=== PATIENT | female | born 1990 | race African-American/Black ===

== ENCOUNTER 2016-12-08 07:38 | Emergency (ER) | payer OTHER ==
[~2016-12-08] VITALS: Ht 152.4 cm; Wt 65.8 kg
[~2016-12-08 07:38] MED LIST: IBUP-1060 PO; NAPR500T8 PO
[2016-12-08 07:56] VITALS: BP 113/71
[2016-12-08 08:04] LABS: BILIRUBIN,URINE NEGATIVE (NEG); GLUCOSE,URINE NEGATIVE (NEG); NITRITE,URINE NEGATIVE (NEG); PROTEIN,URINE NEGATIVE (NEG-TRACE)
--- NOTE | 2016-12-08 08:19 | PHYS DOC ---
Past Medical History Past Medical History: No Pertinent History Past Surgical History: No Surgical History Alcohol Use: None Drug Use: None Adult General Chief Complaint Chief Complaint: VAGINAL BLEEDING HPI HPI 26-year-old female presenting to the emergency department with vaginal bleeding. She reports possibly being . She had a positive test at home. Last menstrual period in July but she does not know the day. She denies any pain. The bleeding is been present for 2-3 days. Location tract. Duration intermittent. No alleviating or exacerbating factors. Review of systems is negative for chest pain shortness of breath abdominal pain nausea vomiting fevers or chills. All other review of systems is negative unless otherwise noted in history of present illness. ED course: 18-year-old female presenting to the emergency department today with vaginal bleeding and . Vital signs unremarkable. [id number] ultrasound obtained shows intrauterine with heart tones in the 140s. No free fluid. Abdomen is soft and nontender. Rh+ per chart review. Based on patient's last menstrual, She is over 20 weeks and will subsequently be transferred up to the obstetrics floor for further evaluation workup and care. Review of Systems Review of Systems SEE ABOVE. Allergies Allergies Allergies Coded Allergies Type Severity Reaction Last Updated Verified No Known Drug Allergies 08/03/14 No Physical Exam Physical Exam SEE ABOVE Constitutional: Well developed, well nourished, no acute distress, non-toxic appearance. [] HENT: Normocephalic, atraumatic, bilateral external ears normal, oropharynx moist, no oral exudates, nose normal. [] Eyes: PERRLA, EOMI, conjunctiva normal, no discharge. [] Neck: Normal range of motion, no tenderness, supple, no stridor. [] Cardiovascular:Heart rate regular rhythm, no murmur [] Lungs & Thorax: Bilateral breath sounds clear to auscultation [] Abdomen: Bowel sounds normal, soft, no tenderness, no masses, no pulsatile masses. [] Skin: Warm, dry, no erythema, no rash. [] Back: No tenderness, no CVA tenderness. [] Extremities: No tenderness, no cyanosis, no clubbing, ROM intact, no edema. [] Neurologic: Alert and oriented X 3, normal motor function, normal sensory function, no focal deficits noted. [] Psychologic: Affect normal, judgement normal, mood normal. [] Current Patient Data Vital Signs Vital Signs Date Time Temp Pulse Resp B/P (MAP) Pulse Ox O2 Delivery O2 Flow Rate FiO2 12/08/16 07:56 98.6 65 20 113/71 (85) 99 Room Air 98.6 Lab Values Laboratory Tests Test 12/08/16 06:55 12/08/16 07:45 POC Urine HCG, Qualitative Hcg positive (Negative) Urine Collection Type Unknown Urine Color Yellow Urine Clarity Clear Urine pH 7.0 Urine Specific Guthrie 1.020 Urine Protein Negative mg/dL (NEG-TRACE) Urine Glucose (UA) Negative mg/dL (NEG) Urine Ketones (Stick) Negative mg/dL (NEG) Urine Blood Large (NEG) Urine Nitrite Negative (NEG) Urine Bilirubin Negative (NEG) Urine Urobilinogen Dipstick 1.0 mg/dL (0.2 mg/dL) Urine Leukocyte Esterase Moderate (NEG) Urine RBC 3-5 /HPF (0-2) Urine WBC 5-10 /HPF (0-4) Urine Squamous Epithelial Cells Many /LPF Urine Bacteria 0 /HPF (0-FEW) Urine Mucus Mod /LPF EKG EKG [] Radiology/Procedures Radiology/Procedures [] Course & Med Decision Making Course & Med Decision Making Pertinent Labs and Imaging studies reviewed. (See chart for details) [] Dragon Disclaimer Dragon Disclaimer This electronic medical record was generated, in whole or in part, using a voice recognition dictation system. Departure Departure Impression: Primary Impression: Additional Impression: Vaginal bleeding in Disposition: 05 TRANSFER OTHER (OB floor) Condition: STABLE Referrals: NO PCP (PCP) Problem Qualifiers BRANDIE MONTERROSO MD Dec 08, 2016 08:18
[2016-12-08 08:34] LABS: BACTERIA,URINE 0 /HPF (0-FEW); SQUAMOUS EPITHELIAL CELL,UR MANY /LPF
== END 2016-12-08 08:42 | disposition home or self-care (01) ==
LOC: ER 07:38
DX: O46.92 Antepartum hemorrhage, unspecified, second trimester (principal); Z3A.20 20 weeks gestation of pregnancy
CPT/HCPCS: 81001; 81025; 87086; 99285

== ENCOUNTER 2016-12-08 08:28 | Inpatient (IN) | payer OTHER ==
[2016-12-08 07:56] VITALS: BP 113/71
[2016-12-08 10:33] LABS: BASO % 0 % (0-3); EOS % 1 % (0-3); HEMATOCRIT 35.6 % (36.0-47.0); HEMOGLOBIN 12.6 g/dL (12.0-15.5); LYMPH # 1.8 x10^3/uL (1.0-4.8); LYMPH % 22 % (24-48); MEAN CORPUSCULAR HEMOGLOBIN 31 pg (25-35); MEAN CORPUSCULAR HGB CONC 36 g/dL (31-37); MEAN CORPUSCULAR VOLUME 87 fL (79-100); MONO % 6 % (0-9); NEUT % 71 % (31-73); PLATELET COUNT 300 x10^3/uL (140-400); RED CELL DISTRIBUTION WIDTH 13.9 % (11.5-14.5); WHITE BLOOD COUNT 8.1 x10^3/uL (4.0-11.0)
[2016-12-08] MEDS ORDERED: IV RINGERS,LACTATED 1000ML 1,000 ML IV SCH (11:23)
--- NOTE | 2016-12-08 14:09 | RAD ---
Obstetrical ultrasound-limited, 12/08/2016: History: Vaginal bleeding and spotting, unsure of dates Transabdominal scans were obtained. There is a single intrauterine fetus in a cephalic orientation. The biparietal diameter measures 3 cm compatible with a gestational age of 15-16 weeks. This corresponds well with the other measurements and yields a sonographic EDC of 05/30/2017. Normal activity and heart motion were seen. The heart rate was 158 bpm. A full survey was not attempted at this time. A normal amount of amniotic fluid is present. The placenta is centered in the fundal region. There is no evidence of a placenta previa. The cervical length was estimated at 2.1-2.5 cm. IMPRESSION: 1. Single viable intrauterine fetus of 15-16 weeks gestational age. 2. Short cervix
--- NOTE | 2016-12-14 17:59 | PDOC1 ---
OB - History Hx of Present Care: None Ultrasounds: No ultrasounds Obstetrical Complications: Other (vaginal bleeding) Medical Complications: None Past Family/Social History * Past Medical, Surgical, Family and Obstetric Histories reviewed from chart. Blood Type: Unknown Rubella: Unknown RPR/VDRL: Unknown GBS Status: Unknown HBsAG: Unknown OB - Chief Complaint & HPI Date of Admission: Date of Admission: Dec 08, 2016 at 08:28 Chief Complaint/History : 5 Para: 3 EGA: 19 Reason for admission: vaginal bleeding Admission Nurse Assessment Rev: Yes Problems: OB - Admission Exam Physical Exam HEENT: Normal Heart: Regular Rate Lungs: Clear Abdomen: Gravid, Non tender, Soft Extremities: Normal Pulses, No tenderness or swelling Reflexes: Normal Cervical Dilatation: None Effacement: 0% Station: Ballotable Membranes: Intact Heart Rate: Normal Accelerations: Accelerations Present Decelerations: No decelerations Contractions on Admission: None Text A: 19 wks IUP with vaginal bleeding No active bleeding at this time P: Sono and heart tones. D/c home when stable. ERIK JEAN Jr, MD Dec 14, 2016 17:59
== END 2016-12-08 11:00 | disposition home or self-care (01) | DRG 778 ==
LOC: OBSVTOIN 08:28 → 3 SO LND 08:28
PROVIDERS: ADMIT Obstetrics & Gynecology; ATTEND Obstetrics & Gynecology
DX: O20.9 Hemorrhage in early pregnancy, unspecified (principal); Z3A.19 19 weeks gestation of pregnancy
CPT/HCPCS: 36415; 76805; 85027; 86850; 86900; 86901; G0378; G0379

== ENCOUNTER 2017-08-04 13:13 | Observation (INO) | payer OTHER ==
[2017-08-04 13:56] LABS: NEG OBC AMNIO NEG; POS OBC AMNIO POS
[2017-08-04 13:57] LABS: AMNIO PT POSITIVE
== END 2017-08-04 14:31 | disposition home or self-care (01) ==
LOC: 3 SO LND 13:13
DX: O42.912 Preterm premature rupture of membranes, unspecified as to length of time between rupture and onset of labor, second trimester (principal); Z3A.18 18 weeks gestation of pregnancy
CPT/HCPCS: 36415; 76815; 84112; G0378; G0379

== ENCOUNTER 2017-08-04 13:13 | Observation (INO) | payer OTHER ==
[2017-08-04 16:53] LABS: ADD MAN DIFF? NO
[2017-08-04 16:54] LABS: BASO # 0.1 x10^3/uL (0.0-0.2); BASO % 1 % (0-3); EOS # 0.1 x10^3/uL (0.0-0.7); EOS % 1 % (0-3); HEMATOCRIT 33.5 % (36.0-47.0); HEMOGLOBIN 11.7 g/dL (12.0-15.5); LYMPH # 1.7 x10^3/uL (1.0-4.8); LYMPH % 21 % (24-48); MEAN CORPUSCULAR HEMOGLOBIN 30 pg (25-35); MEAN CORPUSCULAR HGB CONC 35 g/dL (31-37); MEAN CORPUSCULAR VOLUME 87 fL (79-100); MONO # 0.5 x10^3/uL (0.0-1.1); MONO % 6 % (0-9); NEUT # 5.6 x10^3uL (1.8-7.7); NEUT % 71 % (31-73); PLATELET COUNT 297 x10^3/uL (140-400); RED BLOOD COUNT 3.87 x10^6/uL (3.50-5.40); RED CELL DISTRIBUTION WIDTH 14.1 % (11.5-14.5)
== END 2017-08-04 18:28 | disposition home or self-care (01) ==
LOC: 3 SO LND 13:13
DX: O42.912 Preterm premature rupture of membranes, unspecified as to length of time between rupture and onset of labor, second trimester (principal); Z3A.18 18 weeks gestation of pregnancy
CPT/HCPCS: 36415; 85025; G0378; G0379

== ENCOUNTER 2017-08-09 20:48 | Inpatient (IN) | payer OTHER ==
[2017-08-09] MEDS: IV NORMAL SALINE 1000ML BAG 1,000 ML IV (21:11)
[2017-08-09 21:17] LABS: ADD MAN DIFF? NO
[2017-08-09] MEDS: ONDANSETRON PF 4 MG/2 ML VIAL. IV (21:17)
[2017-08-09 21:20] LABS: BASO # 0.1 x10^3/uL (0.0-0.2); BASO % 1 % (0-3); EOS % 0 % (0-3); HEMATOCRIT 37.9 % (36.0-47.0); HEMOGLOBIN 12.9 g/dL (12.0-15.5); LYMPH # 2.4 x10^3/uL (1.0-4.8); LYMPH % 16 % (24-48); MEAN CORPUSCULAR HEMOGLOBIN 29 pg (25-35); MEAN CORPUSCULAR HGB CONC 34 g/dL (31-37); MEAN CORPUSCULAR VOLUME 86 fL (79-100); MONO # 1.3 x10^3/uL (0.0-1.1); MONO % 9 % (0-9); NEUT # 11.1 x10^3uL (1.8-7.7); NEUT % 74 % (31-73); PLATELET COUNT 329 x10^3/uL (140-400); RED CELL DISTRIBUTION WIDTH 13.8 % (11.5-14.5)
[2017-08-09 21:26] LABS: BILIRUBIN,URINE NEGATIVE (NEG); CLARITY,URINE CLOUDY; COLOR,URINE YELLOW; GLUCOSE,URINE NEGATIVE (NEG); NITRITE,URINE NEGATIVE (NEG); PH,URINE 6.5; PROTEIN,URINE NEGATIVE (NEG-TRACE); UROBILINOGEN,URINE 0.2 mg/dL (0.2 mg/dL)
[2017-08-09 21:32] LABS: BLOOD UREA NITROGEN 7 mg/dL (7-20); CALCIUM 9.3 mg/dL (8.5-10.1); CARBON DIOXIDE 22 mmol/L (21-32); CHLORIDE 99 mmol/L (98-107); CREATININE 0.6 mg/dL (0.6-1.0); GLUCOSE 86 mg/dL (70-99); POTASSIUM 3.5 mmol/L (3.5-5.1); SODIUM 135 mmol/L (136-145)
[2017-08-09 21:33] LABS: ANION GAP 14 (6-14); PARTIAL THROMBOPLASTIN TIME 32 SEC (24-38); RBC,URINE 20-40 /HPF (0-2)
[2017-08-09 21:34] LABS: BACTERIA,URINE MODERATE /HPF (0-FEW); SQUAMOUS EPITHELIAL CELL,UR FEW /LPF; WBC,URINE 20-40 /HPF (0-4)
[2017-08-09 21:38] LABS: ALBUMIN 3.1 g/dL (3.4-5.0); ALK PHOS 72 U/L (46-116); ALT (SGPT) 14 U/L (14-59); AST (SGOT) 12 U/L (15-37); DIRECT BILIRUBIN 0.1 mg/dL (0.0-0.2); TOTAL BILIRUBIN 0.2 mg/dL (0.2-1.0); TOTAL PROTEIN 7.9 g/dL (6.4-8.2)
[2017-08-09] MEDS ORDERED: 0.9 % SODIUM CHLORIDE 10 ML DISP.SYRIN. IV (22:30)
[2017-08-09] MEDS ORDERED: BUTORPHANOL 2 MG/ML VIAL. IV (22:30)
[2017-08-09] MEDS ORDERED: fentaNYL PF VIAL 100 MCG/2 ML VIAL IV (22:30)
[2017-08-09] MEDS ORDERED: OXYTOCIN 30 UNIT/500 ML PREMIX 500 ML IV (22:30)
[2017-08-09] MEDS ORDERED: ZOLPIDEM 5 MG TABLET. PO (22:30)
[2017-08-09] MEDS ORDERED: ACETAMINOPHEN 325 MG TABLET. PO (22:30)
[2017-08-09] MEDS ORDERED: ONDANSETRON PF 4 MG/2 ML VIAL. IV (22:30)
[2017-08-09] MEDS: IV RINGERS,LACTATED 1000ML 1,000 ML IV (22:35)
[2017-08-10] MEDS: IBUPROFEN 800 MG TABLET. PO (02:34)
[2017-08-10] MEDS ORDERED: BENZOCAINE 20% TOPICAL AEROSOL SPRAY 57GM CAN. TP (09:15)
[2017-08-10] MEDS ORDERED: PHENYLEPH/MINERAL OIL/PETROLAT RECTAL OINTMENT 28GM TUBE. RC (09:15)
[2017-08-10] MEDS ORDERED: ACETAMINOPHEN 325 MG TABLET. PO (09:15)
[2017-08-10] MEDS ORDERED: diphenhydrAMINE HCL 25 MG CAPSULE PO (09:15)
[2017-08-10] MEDS ORDERED: MAGNESIUM HYDROXIDE 2,400 MG/30 ML ORAL.SUSP. PO (09:15)
[2017-08-10] MEDS ORDERED: oxyCODONE/APAP 5/325 1 TAB TABLET PO (09:15)
[2017-08-10] MEDS ORDERED: ZOLPIDEM 5 MG TABLET. PO (09:15)
[2017-08-10] MEDS ORDERED: DOCUSATE SODIUM 100 MG CAPSULE. PO (09:15)
[2017-08-10] MEDS ORDERED: IBUPROFEN 800 MG TABLET. PO (09:15)
[2017-08-10] MEDS ORDERED: 0.9 % SODIUM CHLORIDE 10 ML DISP.SYRIN. IV (09:15)
[2017-08-10] MEDS ORDERED: MAG HYDROX/ALUMINUM HYD/SIMETH 30 ML ORAL.SUSP PO (09:15)
[2017-08-10] MEDS ORDERED: SIMETHICONE 80 MG TAB.CHEW PO (09:15)
[2017-08-10] MEDS ORDERED: MMR per PROTOCOL. MC (09:15)
[2017-08-10] MEDS ORDERED: OXYTOCIN 30 UNIT/500 ML PREMIX 500 ML IV (09:15)
[2017-08-10] MEDS ORDERED: HYDROCORTISONE 1% TOPICAL OINTMENT 30GM TUBE. TP (09:15)
[2017-08-10 11:35] LABS: ADD MAN DIFF? NO
[2017-08-10 11:41] LABS: BASO % 0 % (0-3); EOS # 0.1 x10^3/uL (0.0-0.7); EOS % 1 % (0-3); HEMATOCRIT 29.9 % (36.0-47.0); HEMOGLOBIN 10.2 g/dL (12.0-15.5); LYMPH # 2.1 x10^3/uL (1.0-4.8); LYMPH % 17 % (24-48); MEAN CORPUSCULAR HEMOGLOBIN 30 pg (25-35); MEAN CORPUSCULAR HGB CONC 34 g/dL (31-37); MEAN CORPUSCULAR VOLUME 87 fL (79-100); MONO # 0.9 x10^3/uL (0.0-1.1); MONO % 7 % (0-9); NEUT # 9.1 x10^3uL (1.8-7.7); NEUT % 74 % (31-73); PLATELET COUNT 306 x10^3/uL (140-400); RED BLOOD COUNT 3.42 x10^6/uL (3.50-5.40); RED CELL DISTRIBUTION WIDTH 13.7 % (11.5-14.5); WHITE BLOOD COUNT 12.3 x10^3/uL (4.0-11.0)
[2017-08-11] MEDS ORDERED: FERROUS SULFATE 325 MG TABLET. PO (08:00)
== END 2017-08-10 12:35 | disposition home or self-care (01) | DRG 775 ==
LOC: ER 20:48 → 3 SO LND 21:45
PROC: 10E0XZZ Delivery of Products of Conception, External Approach (ICD-10-PCS; principal; 2017-08-09)
DX: O60.12X0 Preterm labor second trimester with preterm delivery second trimester, not applicable or unspecified (principal); O32.1XX0 Maternal care for breech presentation, not applicable or unspecified; O69.2XX0 Labor and delivery complicated by other cord entanglement, with compression, not applicable or unspecified; O42.912 Preterm premature rupture of membranes, unspecified as to length of time between rupture and onset of labor, second trimester; Z37.1 Single stillbirth; Z3A.19 19 weeks gestation of pregnancy
CPT/HCPCS: 36415; 76815; 80048; 80076; 81001; 85025; 85610; 85730; 86850; 86900; 86901; 87086; 96374; 99291-25; J2405; J7030; J7120

== ENCOUNTER → 2018-05-18 | Outpatient (CLI) | payer MEDICAID ==
[2017-08-10 03:19] VITALS: BP 116/70
[~2018-05-18] MED LIST changes: +NAPR-514 PO
--- NOTE | 2018-05-18 16:21 | RAD ---
Indication: No heart tone. High-risk TECHNIQUE: Ultrasound OB. . COMPARISON: 08/09/2017. FINDINGS: The uterus is anteverted and measures 10.5 x 5.4 x 6.0 cm (longitudinal, AP, transverse). The right ovary measures 3.3 x 2.0 x 2.8 cm and shows blood flow. The left ovary measures 3.5 x 2.0 x 3.8 cm and shows blood flow. Intrauterine seen with pole with crown-rump length measuring 3.55 cm corresponding to gestation age of 10 weeks 2 days. No cardiac activity is demonstrated. IMPRESSION: Intrauterine corresponding to gestation age of 10 weeks 2 days without cardiac activity. Electronically signed by: Herbert King DO (05/18/2018 4:17 PM) [facility]
== END | disposition home or self-care (01) ==
LOC: US 15:19
PROVIDERS: ATTEND Obstetrics & Gynecology
DX: O09.891 Supervision of other high risk pregnancies, first trimester (principal); O76 Abnormality in fetal heart rate and rhythm complicating labor and delivery; Z3A.10 10 weeks gestation of pregnancy
CPT/HCPCS: 76801

== ENCOUNTER → 2018-06-12 | Day surgery (SDC) | payer MEDICAID, OTHER ==
[~2018-06-12] VITALS: Ht 160 cm; Wt 75.7 kg
[~2018-06-12] MED LIST changes: +DEXAMETHASONE SOD PHOS 20 MG/5 ML VIAL. ONE; +HYDROmorphone 2 MG/ML VIAL IV PRN; +IV RINGERS,LACTATED 1000ML 1,000 ML IV SCH; +KETOROLAC 30 MG/ML INJ FOR OR. INJ ONE; +LIDOCAINE 1% PF 2 ML VIAL. ID PRN; +LIDOCAINE 2% PF Vial for OR 5 ML VIAL. ONE; +MORPHINE SULFATE 4 MG/ML VIAL. IV PRN; +ONDANSETRON PF 4 MG/2 ML VIAL. IV PRN; +ONDANSETRON PF 4 MG/2 ML VIAL. ONE; +OXYC1TAB15 PO; +OXYTOCIN 10 UNIT/ML VIAL. ONE; +PREN1TAB58 PO; +PROCHLORPERAZINE 10 MG/2 ML VIAL. IV PRN; +PROPOFOL 20 ML IV ONE; +SEVOFLURANE 16 TO 30 MINUTES. IH ONE; +VASOPRESSIN 20 UNIT/ML VIAL. ONE; +fentaNYL PF VIAL 100 MCG/2 ML VIAL IV PRN; +fentaNYL PF VIAL 100 MCG/2 ML VIAL ONE
[2018-06-12 11:13] LABS: BASO # 0.1 x10^3/uL (0.0-0.2); BASO % 2 % (0-3); EOS # 0.1 x10^3/uL (0.0-0.7); EOS % 1 % (0-3); HEMATOCRIT 40.1 % (36.0-47.0); LYMPH # 2.3 x10^3/uL (1.0-4.8); LYMPH % 35 % (24-48); MEAN CORPUSCULAR HEMOGLOBIN 30 pg (25-35); MEAN CORPUSCULAR HGB CONC 35 g/dL (31-37); MEAN CORPUSCULAR VOLUME 86 fL (79-100); MONO # 0.5 x10^3/uL (0.0-1.1); MONO % 7 % (0-9); NEUT # 3.5 x10^3uL (1.8-7.7); NEUT % 55 % (31-73); PLATELET COUNT 333 x10^3/uL (140-400); RED BLOOD COUNT 4.67 x10^6/uL (3.50-5.40); WHITE BLOOD COUNT 6.5 x10^3/uL (4.0-11.0)
--- NOTE | 2018-06-12 13:39 | PDOC ---
BRIEF OPERATIVE NOTE Date: Jun 12, 2018 Pre-Op Diagnosis Missed Post-Op Diagnosis Same Procedure Performed Suction D&C Surgeon Dr. Merino Anesthesia Type: General Blood Loss 200 ml Specimens Obtained POC and blood products Findings POC and blood products Complications none Operative Note see dictation ERIK MERINO Jr, MD Jun 12, 2018 13:38
--- NOTE | 2018-06-12 13:39 | DISCH ---
DISCHARGE INSTRUCTIONS Condition on Discharge Condition on Discharge: Stable Activity After Discharge Activity Instructions for Disc: Activity as tolerated Lifting Instructions after Dis: No heavy lifting Driving Instructions after Dis: Do not drive today Weight Bearing Status after Di: As tolerated Diet after Discharge Diet after Discharge: Regular Diet Texture: Regular Contacting the DRSindhu after DC Call your doctor for: Concerns you may have Follow-Up Follow up with: Dr. Merino in 1 week. Treatment/Equipment after DC Adaptive Equipment Issued: None ERIK MERINO Jr, MD Jun 12, 2018 13:39
--- NOTE | 2018-06-12 13:52 | OP ---
DATE OF SURGERY: 06/12/2018 PREOPERATIVE DIAGNOSIS: Missed , 9 weeks. POSTOPERATIVE DIAGNOSIS: Missed , 9 weeks. PROCEDURE: Suction D and C. SURGEON: Maikol Merino MD ANESTHESIA: GETA. ESTIMATED BLOOD LOSS: 200 mL. COMPLICATIONS: None. FINDINGS: Products of conception and blood products. SUMMARY: A 28-year-old female with 9-week missed , counseled on risks, benefits and expectations of D and C and voiced clear understanding to proceed. DESCRIPTION OF PROCEDURE: The patient was taken to surgery suite, placed in dorsal lithotomy position. She was prepped with Betadine solution and draped in sterile fashion. After adequate anesthesia, a weighted speculum and curved Gianna placed vaginally. Anterior lip of the cervix grasped with single tooth tenaculum. Cervix dilated with Solares dilators up to a size 12. A 9 curved tip suction curette was then passed through with the suction of 65 cm of mercury removing products of conception as well as blood products and was also rotated in a circumferential manner. Sharp curettage took place until a fine gritty surface was palpated circumferentially. Suction curette was passed once again to remove additional products of conception and blood products. The suction was then removed. Single tooth tenaculum was removed. Uterus palpated firm. The cervix was hemostatic. The patient tolerated the procedure well and was taken to recovery room in stable condition. Sponge and needle count correct x 3. MAIKOL MERINO MD DR: LEANNE/nts JOB#: [id number] / [id number]
[2018-06-12 14:40] VITALS: BP 112/70
--- NOTE | 2018-06-14 15:09 | PATHOLOGY ---
[facility] Accession Number: [id number] . 01 Material submitted: . PRODUCTS OF CONCEPTION . 01 Clinical history: . demise . 02 Diagnosis: Uterine contents, suction D and C: - Products of conception, comprised of parts, placental membranous tissue, immature chorionic villi, and segments of decidual tissue showing focal acute inflammation. (JPM:grady; 06/14/2018) QMS/06/14/2018 . 02 Electronically signed: . Sandoval Christopher MD, Pathologist NPI- [id number] . 01 Gross description: . Received in formalin labeled "Janina Mcadams, products of conception," is a 5.0 x 4.8 x 1.3 cm aggregate of pink-yanez villiform tissue admixed with blood clot. tissue is identified, consisting of a partial spinal column and rib cage with attached organs. An arm is identified, with a hand length of 0.5 cm. No further measurements are obtainable. Vesicular structures are absent. [employer] tissue is submitted in cassettes A1 through A3. ([facility]; 06/13/2018) XDC/XDC . 02 Pathologist provided ICD-10: O02.1, O02.89 . 02 CPT . 161405 Specimen Comment: A courtesy copy of this report has been sent to Specimen Comment: [phone]. Specimen Comment: Report sent to Performed at: 01 [facility] [address], [place] [id number] MD Markell Olivares MD Phone: [phone] Performed at: 02 [facility] [address] [place], [place] [id number] MD Sandoval Christopher MD Phone: [phone]
== END | disposition home or self-care (01) ==
LOC: SURG 09:53
PROVIDERS: ATTEND Obstetrics & Gynecology
DX: O02.1 Missed abortion (principal); Z3A.09 9 weeks gestation of pregnancy; Z98.890 Other specified postprocedural states; Z79.899 Other long term (current) drug therapy
CPT/HCPCS: 36415; 59820; 85025; 88305; J0696; J1100; J1885; J2001; J2405; J2704; J3010; J7120; J2590; J3490